=== PATIENT | male | born 1950 | race Two or more races ===

== ENCOUNTER 2017-01-06 14:13 | Emergency (ER) | payer MEDICAID, MEDICARE ==
[~2017-01-06] VITALS: Ht 167.6 cm; Wt 93.2 kg
[~2017-01-06 14:13] MED LIST: HYDR-757; LISI30TA4 PO; OXYC-307 PO; TAMS-11
[2017-01-06] MEDS ORDERED: SODIUM CHLORIDE 0.9% 1,000ML IV ONE (15:00)
[2017-01-06] MEDS ORDERED: SODIUM CHLORIDE FLUSH 10ML SYR IVF ONE (15:00)
[2017-01-06] MEDS ORDERED: HYDROmorphone 1 MG/ML, 1ML IVPush PRN (15:00)
[2017-01-06] MEDS ORDERED: ONDANSETRON 2MG/ML, 2ML IVPush ONE (15:00)
[2017-01-06] MEDS ORDERED: HYDROmorphone 1 MG/ML, 1ML ONE (15:08)
[2017-01-06] MEDS ORDERED: ONDANSETRON 2MG/ML, 2ML ONE (15:09)
[2017-01-06 15:12] LABS: HEMATOCRIT 41.7 % (39.2-51.8); HEMOGLOBIN 14.2 g/dL (13.7-18.0)
[2017-01-06 15:17] VITALS: BP 130/64
[2017-01-06 15:23] LABS: BLOOD UREA NITROGEN 12 mg/dL (7-18)
[2017-01-06 15:24] LABS: ASPARTATE AMINO TRANSFERASE 24 U/L (15-37)
[2017-01-06] MEDS ORDERED: OMNIPAQUE 350 MG/ML, 100ML BOTTLE ONE (16:01)
[2017-01-06] MEDS ORDERED: POTASSIUM CHLORIDE 20 MEQ TAB.ER.PRT ONE (16:24)
[2017-01-06] MEDS ORDERED: POTASSIUM CHLORIDE 20 MEQ TAB.ER.PRT PO ONE (16:30)
== END 2017-01-06 17:39 ==
LOC: ED 16:50
DX: C61 Malignant neoplasm of prostate (principal); E87.6 Hypokalemia; M54.5 Low back pain; I10 Essential (primary) hypertension; N40.0 Benign prostatic hyperplasia without lower urinary tract symptoms; Z88.0 Allergy status to penicillin
CPT/HCPCS: 36415; 72131; 74177; 80053; 81001; 85025; 87086; 96361; 96374; 96375; 99285; J1170; J2405; J7030; Q9967